=== PATIENT | female | born 1945 | race Caucasian/White ===

== ENCOUNTER 2019-01-11 07:19 | Outpatient (CLI) | payer MEDICARE, BC ==
[~2019-01-11 07:19] MED LIST: ASPI300S PO; CIPR500T87 PO; ESOM20CA PO; FOLI-17 PO; GLUCOSAMINE 1,1 EACH PO; OMEG300C PO; d-3 PO; multivitamin PO; vit c PO
== END 2019-01-11 23:59 | disposition home or self-care (01) ==
LOC: CFH 07:19
PROVIDERS: ATTEND Internal Medicine Cardiovascular Disease
DX: I08.0 Rheumatic disorders of both mitral and aortic valves (principal); F10.21 Alcohol dependence, in remission
CPT/HCPCS: 71046; 93306

== ENCOUNTER → 2020-01-11 | Outpatient (CLI) | payer MEDICARE, BC ==
[~2020-01-11] MED LIST changes: +REGADENOSON 0.4 MG/5 ML SYRINGE ONE
== END | disposition home or self-care (01) ==
LOC: CFH 07:59
PROVIDERS: ATTEND Internal Medicine Cardiovascular Disease
DX: I44.7 Left bundle-branch block, unspecified (principal); R42 Dizziness and giddiness
CPT/HCPCS: 78452; 93017; A9502; J2785